=== PATIENT | male | born 1980 | race African-American/Black ===

== ENCOUNTER 2016-08-22 01:31 | Emergency (ER) | payer OTHER ==
[~2016-08-22] VITALS: Ht 165.1 cm; Wt 113.4 kg
[2016-08-22 04:10] VITALS: BP 138/78
== END 2016-08-22 04:10 | disposition home or self-care (01) ==
LOC: ED 01:31
DX: M94.0 Chondrocostal junction syndrome [Tietze] (principal)
CPT/HCPCS: J1885

== ENCOUNTER 2016-08-29 14:31 | Emergency (ER) | payer OTHER ==
[~2016-08-29] VITALS: Ht 165.1 cm; Wt 105.9 kg
[2016-08-29 17:26] VITALS: BP 144/95
== END 2016-08-29 17:50 | disposition home or self-care (01) ==
LOC: ED 14:31
DX: R07.89 Other chest pain (principal); R03.0 Elevated blood-pressure reading, without diagnosis of hypertension